=== PATIENT | male | born 1975 | race Caucasian/White ===

== ENCOUNTER 2017-06-15 14:25 | Emergency (ER) | payer OTHER, BC ==
[~2017-06-15] VITALS: Ht 180.3 cm; Wt 83.9 kg
[2017-06-15] MEDS ORDERED: fentaNYL CITR 100 MCG/2 ML AMP ONE (14:30)
[2017-06-15] MEDS ORDERED: fentaNYL CITR 100 MCG/2 ML AMP IVP ONE ×2 (14:35→16:30)
[2017-06-15] MEDS ORDERED: DIAZEPAM 10 MG/2 ML SYR IVP ONE ×2 (14:35→16:30)
--- NOTE | 2017-06-15 15:17 | RADIOLOGY IMAGING REPORT ---
FACILITY: [facility] - [place] PATIENT NAME: Sergio Bill : 1975 MR: [id number] V: [id number] EXAM DATE: ORDERING PHYSICIAN: MEREDITH HIRSCH TECHNOLOGIST: Location: [facility] Patient: Sergio Bill : 1975 Visit/Account:[id number] Date of Sevice: 06/15/2017 ORBITS FOREIGN BODY 1 VIEW History: Evaluate for radiopaque foreign body. Comparison study: None. Findings: There are no findings or radiopaque foreign body overlying the right or left orbit. There may be minimal mucosal thickening of the maxillary sinuses. IMPRESSION: Findings of a radiopaque foreign body overlying the right or left orbit. Results were called to senior cytogenetic technologist at 06/15/2017 3:14 PM. Report Dictated By: Dinesh Dumas MD at 06/15/2017 3:13 PM Report E-Signed By: Dinesh Dumas MD at 06/15/2017 3:14 PM WSN:[email or web address]
--- NOTE | 2017-06-15 16:20 | RADIOLOGY IMAGING REPORT ---
[place] [facility] [place] NAME: Sergio Bill : 1975 MR: [id number] V: [id number] EXAM DATE: ORDERING PHYSICIAN: MEREDITH HIRSCH TECHNOLOGIST: Location: Patient: Sergio Bill : 1975 Visit/Account:[id number] Date of Sevice: 06/15/2017 T SPINE W/O CONTRAST COMPARISON: None Additional pertinent history: Pain Technique: Multiplanar multisequence thoracic spine MRI was performed without gadolinium enhancement. FINDINGS: Vertebral body height and alignment: Negative Marrow signal: Negative Vertebral bodies: Negative Thoracic spinal cord signal: Negative Disc spaces: Minimal circumferential disc bulging in the lower thoracic spine. Facet hypertrophic ch anges at T10 and T11. Canal and neural foramina: Mild bilateral neural foraminal narrowing at T10 and T11. No canal stenos is. Surrounding soft tissues: Negative IMPRESSION: 1. Spondylitic change involving the thoracic spine contributing to mild bilateral neural foraminal n arrowing at T10 and T11. 2. No underlying canal stenosis. Report Dictated By: Mayo Mera MD at 06/15/2017 4:14 PM Report E-Signed By: Mayo Mera MD at 06/15/2017 4:15 PM WSN:[id number]
[2017-06-15 17:00] VITALS: BP 120/74
--- NOTE | 2017-06-15 17:00 | RADIOLOGY IMAGING REPORT ---
FACILITY: [facility] PATIENT NAME: Sergio Bill : 1975 MR: [id number] V: [id number] EXAM DATE: ORDERING PHYSICIAN: MEREDITH HIRSCH TECHNOLOGIST: Location: [facility] - [place] Patient: Sergio Bill : 1975 Visit/Account:[id number] Date of Sevice: 06/15/2017 EXAMINATION: Lumbar spine MRI without IV contrast HISTORY: Back pain. COMPARISON: None. TECHNIQUE: Multi-planar, multi-sequence lumbar spine MRI was performed without intravenous contrast administration. FINDINGS: Vertebral body heights are maintained. Alignment: Flattening of the normal lumbar lordosis. Vertebral marrow signal: Mild marrow edema along the superior endplate of S1 on the right (Modic type I changes). Distal thoracic cord: Negative. Conus: negative, terminates at L1. Cauda equina: Negative. Paravertebral soft tissues: Negative. Visualized abdominal and pelvic structures: Negative. Disc Spaces: T12-L1: No spinal canal or neural foraminal stenosis. L1-2: No spinal canal or neural foraminal stenosis. L2-3: No spinal canal or neural foraminal stenosis. L3-4: No spinal canal or neural foraminal stenosis. L4-5: There is disc desiccation and an annular fissure in the posterior disc. Small posterior disc bu lge mildly narrows the thecal sac. The right neural foramen is mildly narrowed. L5-S1: Disc desiccation with annular fissure in the posterior disc. There is a small posterior disc p rotrusion. The right lateral recess is mildly narrowed. Mild narrowing of the right neural foramen se condary to bulging of the disc. No central spinal canal stenosis. IMPRESSION: Disc degeneration at L4-5 with annular fissure in the posterior disc and a small posterior disc bulge which mildly narrows the thecal sac and right neural foramen. Disc degeneration at L5-S1 with annular fissure in the posterior disc and a small posterior disc prot rusion. The right lateral recess and right neural foramina are mildly narrowed at L5-S1. Report Dictated By: Melvin Kern MD at 06/15/2017 4:39 PM Report E-Signed By: Melvin Kern MD at 06/15/2017 4:56 PM WSN:[email or web address]
--- NOTE | 2017-06-15 17:14 | ER Report ---
History and Physical Time Seen By MD: 13:55 Hx. 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 Her neck trauma no additional complaints noted REVIEW OF SYSTEMS: Respiratory: No cough, no dyspnea. Cardiovascular: No chest pain, no palpitations. Gastrointestinal: No vomiting, no abdominal pain. Musculoskeletal: Has back pain Remainder of the 14 system rev: Yes Allergies: Coded Allergies: No Known Drug Allergies (Unverified , 02/04/16) Home Meds Reported Medications Lactobacillus Combination No.4 (PROBIOTIC) 1 Each Capsule, 1 EACH PO DAILY, CAPSULE 02/04/16 Reviewed Nurses Notes: Yes Old Medical Records Reviewed: Yes Hx Smoking: No Hx Substance Use Disorder: No Hx Alcohol Use: No Constitutional Vital Sign - Last 24 Hours 06/15/17 06/15/17 06/15/17 06/15/17 14:25 14:27 14:29 14:30 Temp 99.4 Pulse ??? 106 Resp 24 B/P (MAP) 138/112 (121) 131/109 (116) Pulse Ox 98 O2 Delivery Room Air 06/15/17 06/15/17 06/15/17 06/15/17 14:32 14:55 15:00 16:27 Pulse 102 B/P (MAP) 127/86 (100) 125/102 (110) 122/97 (105) Pulse Ox 95 06/15/17 06/15/17 16:30 16:51 Pulse 106 B/P (MAP) 122/77 (92) Pulse Ox 94 Physical Exam General Appearance: The patient is alert, has no immediate need for airway protection and no current signs of toxicity. [ ] Eyes: Pupils equal and round no injection. Respiratory: Chest is non tender, lungs are clear to auscultation. Cardiac: regular rate and rhythm [ ] Gastrointestinal: Abdomen is soft and non tender, no masses, bowel sounds normal. Musculoskeletal: Back examination [place] tenderness at the L1 to T 1011 area no obvious muscle spasms no bony step-offs a positive straight leg lift unable to flex at the hip otherwise unremarkable exam Neck is supple and non tender. Extremities have full range of motion and are non tender. Skin: No rashes or lesions. [ ] DIFFERENTIAL DIAGNOSIS: After history and physical exam differential diagnosis was considered for disc herniation versus fracture Medical Decision Making ED Course/Re-evaluation ED Course Clinical course medical decision making 41-year-old male comes in with back pain after wrestling onto somebody's arm and MRI was performed shows multilevel herniation of discs at the lumbar area and some spondylosis of the inferior lower T-spine area CONSISTENT with exam findings patient was given Dilantin no tolerated well is able to ambulate with little to no issue aggressive follow-up exam was normal patient we discharge diagnosis herniated disc Decision to Disposition Date: Jun 15, 2017 Decision to Disposition Time: 17:12 Depart Departure Latest Vital Signs Vital Signs Date Time Temp Pulse Resp B/P (MAP) Pulse Ox O2 Delivery O2 Flow Rate FiO2 06/15/17 16:51 106 94 06/15/17 16:30 122/77 (92) 06/15/17 14:27 99.4 24 Room Air Impression: Primary Impression: Disc disorder Condition: Improved Disposition: HOME OR SELF-CARE Referrals: DONNA MCCORMACK DO (PCP) DAYAMI WOLF MD 5 Days Patient Instructions: Cervical Disc Herniation (DC) MEREDITH HIRSCH MD Jun 15, 2017 17:14
== END 2017-06-15 17:30 | disposition home or self-care (01) ==
LOC: ER 14:48
DX: M51.26 Other intervertebral disc displacement, lumbar region (principal); Y93.72 Activity, wrestling
CPT/HCPCS: 70030; 72146; 72148; 96374; 96375; 96376; 99284; J3010; J3360

== ENCOUNTER → 2017-06-15 | Outpatient (CLI) | payer OTHER, BC ==
[~2017-06-15] MED LIST: ALL-DPT PO; LACT1CAP6 PO; PANT40TA65 PO
== END ==
LOC: AMB 13:54
PROVIDERS: ATTEND Nurse Practitioner
DX: M54.5 Low back pain (principal); R20.2 Paresthesia of skin; Y93.72 Activity, wrestling
CPT/HCPCS: A0425; A0427

== ENCOUNTER → 2018-02-13 | Outpatient (REF) | payer BC ==
[2018-02-13 15:33] LABS: PLATELET COUNT, AUTOMATED 231 K/uL (150-450)
[2018-02-13 15:40] LABS: INR 0.98
== END ==
PROVIDERS: ATTEND Family Medicine
DX: R10.9 Unspecified abdominal pain (principal)
CPT/HCPCS: 82040; 82247; 82310; 82374; 82435; 82565; 82947; 84075; 84132; 84155; 84295; 84450; 84460; 84520; 85025; 85610; 86140

== ENCOUNTER → 2018-02-13 | Outpatient (CLI) | payer BC ==
[~2018-02-13] MED LIST changes: +IOPAMIDOL 76% 75 ML INFUS BTL 75 ML ONE
--- NOTE | 2018-02-13 16:44 | RADIOLOGY IMAGING REPORT ---
FACILITY: [facility] - [place] PATIENT NAME: Sergio Bill : 1975 MR: [id number] V: [id number] EXAM DATE: ORDERING PHYSICIAN: FLAKO CORTEZ TECHNOLOGIST: Location: [facility] Patient: Sergio Bill : 1975 Visit/Account:[id number] Date of Sevice: 02/13/2018 EXAMINATION: CT abdomen and pelvis with IV contrast HISTORY: Right lower quadrant abdominal pain. TECHNIQUE: Axial CT images of the abdomen and pelvis were obtained with IV contrast, with coronal a nd sagittal 2D reconstructed images. One of the following dose optimization techniques was utilized in the performance of this exam: Autom ated exposure control; adjustment of the mA and/or kV according to the patient's size; or use of an i terative reconstruction technique. Specific details can be referenced in the facility's radiology C T exam operational policy. Contrast: 75 mL of IV Isovue-370. COMPARISON: None. FINDINGS: Liver: Negative. Gallbladder and bile ducts: Negative. Spleen: Negative. Pancreas: Negative. Adrenal glands: Negative. Kidneys: Negative. No hydronephrosis or urinary calculi. Bowel and peritoneum: The small bowel and colon are normal in caliber, without evidence of obstructi on or any focal inflammatory process. Normal appendix. No free fluid or free intraperitoneal air. Pelvic structures: Negative. Lymph node assessment: Negative. Vessels: Negative. Musculoskeletal: No acute osseous findings. Mild chronic degenerative changes of both hips. Body wall: Surgical changes of prior right inguinal hernia repair. Abdominal wall structures appear intact. Lung bases: Negative. IMPRESSION: 1. No CT evidence of acute intra-abdominal pathology. No source of abdominal pain is identified. 2. Normal appendix. 3. Prior right inguinal hernia repair. Report Dictated By: Tenzin Pearce MD at 02/13/2018 4:31 PM Report E-Signed By: Tenzin Pearce MD at 02/13/2018 4:39 PM WSN:[email or web address]
== END ==
LOC: CT 15:11
PROVIDERS: ATTEND Family Medicine
DX: R10.9 Unspecified abdominal pain (principal)
CPT/HCPCS: 74177; Q9967